=== PATIENT | male | born 1980 | race American Indian/Alaskan Native ===

== ENCOUNTER 2017-07-04 09:12 | Emergency (ER) | payer OTHER ==
[2017-07-04 09:18] VITALS: RESP 16; TEMP 98; O2SAT 100
[2017-07-04 09:19] VITALS: BMI 21.2
[2017-07-04] MEDS ORDERED: Sodium Chloride 0.9% 1,000 ML IV STA (10:07)
[2017-07-04 10:54] LABS: BASO # 0.1 K/uL (0.0-0.2); BASO % 0.6 % (0.0-2.0); EOS % 0.1 % (0.0-4.0); HEMATOCRIT 47.6 % (35.0-51.0); LYMPH % 12.2 % (20.0-40.0); MEAN CELL VOLUME 88.6 fl (80.0-94.0); MEAN CORPUSCULAR HEMOGLOBIN 29.2 pg (27.0-31.0); MEAN CORPUSCULAR HGB CONC 32.9 g/dL (33.0-37.0); MEAN PLATELET VOLUME 6.7 fl (7.2-11.7); MONO % 12.1 % (0.0-10.0); NEUT # 12.4 K/uL (1.8-7.0); RED CELL DISTRIBUTION WIDTH 14.3 % (11.5-14.5); WHITE BLOOD COUNT 16.5 K/uL (4.8-10.8)
[2017-07-04 11:08] LABS: ALKALINE PHOSPHATASE 123 U/L (38-126); ALT/SGPT 35 U/L (21-72); AST/SGOT 36 U/L (17-59); BILIRUBIN,TOTAL 1.1 mg/dl (0.2-1.3); BLOOD UREA NITROGEN 19 mg/dl (9-20); CALCIUM 9.6 mg/dL (8.4-10.2); CARBON DIOXIDE 28 mmol/L (22-30); CHLORIDE 101 mmol/L (98-107); GFR AFRICAN-AMERICAN > 60; GLUCOSE,RANDOM 96 mg/dL (75-110); POTASSIUM 4.4 MMOL/L (3.6-5.0); SODIUM 138 mmol/l (132-148); TOTAL PROTEIN 8.5 G/DL (6.3-8.2)
[2017-07-04 11:11] LABS: ALB/GLOB RATIO 1.2 (1.0-2.1)
[2017-07-04] MEDS ORDERED: cefTRIAXone IV 1 gm in Dextros 50 ML IVPB STA (11:15)
[2017-07-04] MEDS ORDERED: Azithromycin 500 MG in Sodium Chloride 0.9% 250 ML IV STA (11:15)
--- NOTE | 2017-07-04 11:17 | ED PDOC ---
HPI: General Adult Time Seen by Provider: 07/04/17 09:31 Chief Complaint (Nursing): Abdominal Pain Chief Complaint (Provider): URI symptoms History Per: Patient History/Exam Limitations: no limitations Onset/Duration Of Symptoms: Days (x1) Additional Complaint(s): Fitz Palencia is a 36 year old male with a chief complaint of productive cough with yellow sputum, fever, sore throat, and runny nose that he has been experiencing since yesterday. Patient reports associated mylagias and diarrhea. He states that yesterday he took Advil and Theraflu, and presents to the ED for an outpatient X-Ray. Past Medical History Reviewed: Historical Data, Nursing Documentation, Vital Signs Vital Signs: Last Vital Signs Temp 98.0 F 07/04/17 09:16 Pulse 112 H 07/04/17 09:16 Resp 16 07/04/17 09:16 BP 131/87 07/04/17 09:16 Pulse Ox 100 07/04/17 14:14 - Medical History PMH: Asthma - Family History Family History: States: Unknown Family Hx - Home Medications Home Medications: Ambulatory Orders Medication Instructions Recorded Alprazolam [Xanax] 2 mg PO PRN 05/01/16 Oxycodone HCl [Oxycodone HCl ER] 30 PO 05/01/16 Naproxen [Naprosyn] 500 mg PO BID PRN #15 tablet 07/04/17 - Allergies Allergies/Adverse Reactions: Allergies Allergy/AdvReac Type Severity Reaction Status Date / Time No Known Allergies Allergy Verified 07/04/17 09:27 Review of Systems Constitutional: Positive for: Fever, Other (myalgias) ENT: Positive for: Nose Discharge, Throat Pain Respiratory: Positive for: Cough (w/ yellow sputum) Genitourinary Male: Positive for: Dysuria Physical Exam - Reviewed Nursing Documentation Reviewed: Yes Vital Signs Reviewed: Yes - Physical Exam Appears: Positive for: Non-toxic, No Acute Distress Head Exam: Positive for: ATRAUMATIC, NORMOCEPHALIC Skin: Positive for: Normal Color, Warm Eye Exam: Positive for: Normal appearance, EOMI, PERRL ENT: Positive for: Nasal Congestion. Negative for: Pharyngeal Erythema Neck: Positive for: Normal, Supple Cardiovascular/Chest: Positive for: Regular Rate, Rhythm. Negative for: Murmur Respiratory: Positive for: Normal Breath Sounds. Negative for: Wheezing Gastrointestinal/Abdominal: Positive for: Normal Exam, Soft. Negative for: Tenderness Back: Positive for: Normal Inspection. Negative for: L CVA Tenderness, R CVA Tenderness Extremity: Positive for: Normal ROM. Negative for: Deformity, Swelling Neurologic/Psych: Positive for: Alert, Oriented. Negative for: Motor/Sensory Deficits - Laboratory Results Result Diagrams: 07/04/17 10:25 07/04/17 10:25 - ECG O2 Sat by Pulse Oximetry: 100 (RA) Pulse Ox Interpretation: Normal - Radiology X-Ray: Interpreted by Me (Right middle lobe infiltrate) Medical Decision Making Medical Decision Making: Impression: URI vs. Viral Syndrome Plan: * Chest X-Ray * EKG * VBG * Toradol 15 mg IB * NaCl 1000 mLs at 1000 mLs/hr * Rocephin 1 gm/100 mLs NS * Zithromax 500 mg/250 mLs NS * Blood Culture * Throat Culture * Reevaluation Accession No. : [id number] Patient Name / ID : LUDWIG QUINTANILLA / [id number] Exam Date : 07/04/2017 08:38:04 ( Approved ) Study Comment : Sex / Age : M / 36Y Creator : Dennis Brown MD Dictator : Dennis Brown MD [employer] Counter Clerk : Bi Consultant : Dennis Brown MD Approver2 : Report Date : 07/04/2017 13:14:44 My Comment : HISTORY: Chronic Cough COMPARISON: No prior. TECHNIQUE: Chest PA and lateral FINDINGS: LUNGS: No active pulmonary disease. PLEURA: No significant pleural effusion identified. No pneumothorax apparent. CARDIOVASCULAR: Normal. OSSEOUS STRUCTURES: No significant abnormalities. VISUALIZED UPPER ABDOMEN: Normal. OTHER FINDINGS: None. IMPRESSION: No acute cardiopulmonary disease appreciated. Scribe Attestation: Documented by Julita De Guzman, acting as a scribe for Desirae Jaeger MD. Provider Scribe Attestation: All medical record entries made by the Scribe were at my direction and personally dictated by me. I have reviewed the chart and agree that the record accurately reflects my personal performance of the history, physical exam, medical decision making, and the department course for this patient. I have also personally directed, reviewed, and agree with the discharge instructions and disposition. Disposition - Clinical Impression Clinical Impression: Viral syndrome - Patient ED Disposition Is Patient to be Admitted: No - Disposition Disposition: Routine/Home Disposition Time: 14:15 Condition: STABLE Additional Instructions: FOLLOW-UP WITH YOUR PMD WITHIN 2 DAYS FOR REEVALUATION. Prescriptions: Naproxen [Naprosyn] 500 mg PO BID PRN #15 tablet PRN Reason: Pain, Moderate (4-7) Instructions: Viral Syndrome (ED) Forms: [employer] (Macedonian)
[2017-07-04] MEDS ORDERED: Azithromycin 500 MG IV IVPB ONE (11:19)
[2017-07-04 11:35] LABS: VENOUS BLOOD GAS BASE EXCESS 2.6 mmol/L (0.0-2.0); VENOUS BLOOD GAS PCO2 41 mmHg (40-60); VENOUS BLOOD PH 7.43 (7.32-7.43)
[2017-07-04] MEDS ORDERED: cefTRIAXone IV 1 gm in Dextros 50 ML IVPB ONE (12:57)
[2017-07-04 14:48] VITALS: BP 112/64; PULSE 90
== END 2017-07-04 14:47 | disposition home or self-care (01) ==
LOC: H.ER 09:12
DX: B34.9 Viral infection, unspecified (principal); J45.909 Unspecified asthma, uncomplicated
CPT/HCPCS: 80053; 82803; 85025; 87040; 87070; 87430; 87804; 96361; 96365; 96367; 96375; 99284; J0456; J0696; J1885; J7040

== ENCOUNTER 2017-07-23 23:58 | Emergency (ER) | payer OTHER ==
[2017-07-23 23:59] VITALS: BMI 21.2
[2017-07-24 00:08] VITALS: BP 141/67; PULSE 85; RESP 16; TEMP 97.4; O2SAT 100
--- NOTE | 2017-07-24 00:45 | ED PDOC ---
HPI: Male Pain Time Seen by Provider: 07/24/17 00:20 Chief Complaint (Nursing): Male Genitourinary Chief Complaint (Provider): hematuria x 1 day History Per: Patient History/Exam Limitations: no limitations Onset/Duration Of Symptoms: Days (1) Current Symptoms Are (Timing): Still Present Severity: Mild Pain Scale Rating Of: 2 Quality Of Discomfort: Unable To Describe Associated Symptoms: denies: Fever, Chills, Nausea, Vomiting, Loss Of Appetite, Back Pain Additional Complaint(s): Patient is a 36 year old AA male with no PMHx who presents for heamturia x 1 day. Patient states that he noticed red colored urine on three episodes of voiding. He denies blood clots and describes urine as red. Patient denies associated back pain fever, chills, N/V, or abdominal pain. Past Medical History Reviewed: Historical Data, Nursing Documentation, Vital Signs Vital Signs: Last Vital Signs Temp 97.4 F L 07/24/17 00:06 Pulse 85 07/24/17 00:06 Resp 16 07/24/17 00:06 BP 141/67 07/24/17 00:06 Pulse Ox 100 07/24/17 00:06 - Medical History PMH: Asthma Other PMH: Anxiety - Surgical History Surgical History: No Surg Hx - Family History Family History: States: No Known Family Hx - Living Arrangements Living Arrangements: With Family - Social History Current smoker - smoking cessation education provided: Yes (3 cigarettes daily) Drugs: Denies - Home Medications Home Medications: Ambulatory Orders Medication Instructions Recorded Alprazolam [Xanax] 2 mg PO PRN 05/01/16 Oxycodone HCl [Oxycodone HCl ER] 30 PO 05/01/16 Naproxen [Naprosyn] 500 mg PO BID PRN #15 tablet 07/04/17 Sulfamethoxazole/Trimethoprim 1 tab PO BID #14 tab 07/24/17 [Bactrim DS 800 mg-160 mg] - Allergies Allergies/Adverse Reactions: Allergies Allergy/AdvReac Type Severity Reaction Status Date / Time No Known Allergies Allergy Verified 07/24/17 00:06 Review of Systems ROS Statement: Except As Marked, All Systems Reviewed And Found Negative Genitourinary Male: Positive for: Hematuria Physical Exam - Reviewed Nursing Documentation Reviewed: Yes Vital Signs Reviewed: Yes - Physical Exam Appears: Positive for: Non-toxic Head Exam: Positive for: ATRAUMATIC, NORMOCEPHALIC Skin: Positive for: Normal Color, Warm, Dry Eye Exam: Positive for: Normal appearance, EOMI, PERRL ENT: Positive for: Normal ENT Inspection Neck: Positive for: Normal, Painless ROM, Supple Cardiovascular/Chest: Positive for: Regular Rate, Rhythm. Negative for: Edema, JVD Respiratory: Positive for: Normal Breath Sounds. Negative for: Crackles, Rales , Wheezing Gastrointestinal/Abdominal: Positive for: Normal Exam, Bowel Sounds, Soft. Negative for: Tenderness Back: Positive for: Normal Inspection. Negative for: L CVA Tenderness, R CVA Tenderness Extremity: Positive for: Normal ROM. Negative for: Pedal Edema Neurologic/Psych: Positive for: Alert, Oriented. Negative for: Motor/Sensory Deficits - ECG O2 Sat by Pulse Oximetry: 100 Medical Decision Making Medical Decision Makin yo male with painless hematuria UA, CT Renal ordered Ct Renal NAD UA shows small amount of blood Patient stable for discharge home; will treat for mildy cystitis Dx Cystitis FU PCP 2 days, Disposition - Clinical Impression Clinical Impression: Hematuria - Disposition Disposition Time: 02:00 Condition: STABLE Prescriptions: Sulfamethoxazole/Trimethoprim [Bactrim DS 800 mg-160 mg] 1 tab PO BID #14 tab Instructions: Acute Hematuria (ED) Forms: [employer] (Thai)
--- NOTE | 2017-07-24 01:28 | CT ---
EXAM: CT Abdomen and Pelvis Without Intravenous Contrast CLINICAL HISTORY: 36 years old, male; Signs and symptoms; Other: Hematuria; Additional info: Renal colic TECHNIQUE: Axial computed tomography images of the abdomen and pelvis without intravenous contrast. All CT scans at this facility use one or more dose reduction techniques, viz.: automated exposure control; ma/kV adjustment per patient size (including targeted exams where dose is matched to indication; i.e. head); or iterative reconstruction technique. Coronal and sagittal reformatted images were created and reviewed. COMPARISON: No relevant prior studies available. FINDINGS: Limitations: Motion artifact - mild. Lower thorax: Minimal atelectasis/scarring. ABDOMEN: Liver: Unremarkable. Gallbladder and bile ducts: No calcified stones. No ductal dilation. Pancreas: Unremarkable. No ductal dilation. Spleen: No splenomegaly. Adrenals: No mass. Kidneys and ureters: No renal calculi. No hydronephrosis. Stomach and bowel: No definite mural thickening. No obstruction. Appendix: Normal caliber. No definite inflammation. Appendicolith. PELVIS: Bladder: Unremarkable. No stones. Reproductive: Unremarkable as visualized. ABDOMEN and PELVIS: Intraperitoneal space: No significant fluid collection. No free air. Bones/joints: No acute fracture. Soft tissues: Unremarkable. Vasculature: Unremarkable. No aneurysm. Lymph nodes: No pathologically enlarged lymph nodes. IMPRESSION: 1. No definite CT evidence of urolithiasis. 2. Incidental/non-acute findings are described above.
[2017-07-24 04:10] LABS: RBC URINE 4 /hpf (0-3); URINE BILIRUBIN NEGATIVE (NEGATIVE); URINE BLOOD NEGATIVE (NEGATIVE); URINE COLOR YELLOW (YELLOW); URINE GLUCOSE (UA) NEG (Normal); URINE KETONE NEGATIVE (NEGATIVE); URINE LEUKOCYTE ESTERASE NEG Leu/uL (Negative); URINE PROTEIN NEGATIVE (NEGATIVE); URINE UROBILINOGEN 0.2-1.0 mg/dL (0.2-1.0); WBC URINE 1 /hpf (0-5)
== END 2017-07-24 04:48 | disposition home or self-care (01) ==
LOC: H.ER 23:58
DX: N30.90 Cystitis, unspecified without hematuria (principal); F41.9 Anxiety disorder, unspecified; J45.909 Unspecified asthma, uncomplicated; F17.210 Nicotine dependence, cigarettes, uncomplicated

== ENCOUNTER 2017-09-01 14:53 | Emergency (ER) | payer OTHER ==
[2017-09-01 14:53] VITALS: BMI 21.2
[2017-09-01 15:03] VITALS: BP 124/88; PULSE 103; RESP 18; TEMP 98.3; O2SAT 99
--- NOTE | 2017-09-01 15:19 | ED PDOC ---
HPI: Male Pain Chief Complaint (Provider): genital rash History Per: Patient Additional Complaint(s): 36-year-old male presents to emergency department for evaluation of rash to genital area. Patient is requesting a male provider. <Latha Thorntonissa - Last Filed: 09/01/17 15:59> <Chirag Paz - Last Filed: 09/01/17 16:07> Time Seen by Provider: 09/01/17 15:06 Chief Complaint (Nursing): Male Genitourinary Past Medical History Reviewed: Historical Data, Nursing Documentation, Vital Signs Vital Signs: Last Vital Signs Temp 98.3 F 09/01/17 15:01 Pulse 103 H 09/01/17 15:01 Resp 18 09/01/17 15:01 BP 124/88 09/01/17 15:01 Pulse Ox 99 09/01/17 15:01 - Medical History PMH: Back Problems - Surgical History Surgical History: No Surg Hx - Family History Family History: States: No Known Family Hx - Social History Current smoker - smoking cessation education provided: No Alcohol: None Drugs: Denies <Natalia Thornton - Last Filed: 09/01/17 15:59> Vital Signs: Last Vital Signs Temp 98.3 F 09/01/17 15:01 Pulse 103 H 09/01/17 15:01 Resp 18 09/01/17 15:01 BP 124/88 09/01/17 15:01 Pulse Ox 99 09/01/17 16:02 <Chirag Paz - Last Filed: 09/01/17 16:07> - Home Medications Home Medications: Ambulatory Orders Medication Instructions Recorded Alprazolam [Xanax] 2 mg PO PRN 05/01/16 Oxycodone HCl [Oxycodone HCl ER] 30 PO 05/01/16 Naproxen [Naprosyn] 500 mg PO BID PRN #15 tablet 07/04/17 Sulfamethoxazole/Trimethoprim 1 tab PO BID #14 tab 07/24/17 [Bactrim DS 800 mg-160 mg] Clotrimazole/Betamethasone 15 gm EXT BID #1 tube 09/01/17 [Lotrisone] - Allergies Allergies/Adverse Reactions: Allergies Allergy/AdvReac Type Severity Reaction Status Date / Time No Known Allergies Allergy Verified 07/24/17 00:06 Review of Systems ROS Statement: Except As Marked, All Systems Reviewed And Found Negative Constitutional: Negative for: Fever Gastrointestinal: Negative for: Abdominal Pain Genitourinary Male: Positive for: Rash. Negative for: Dysuria, Frequency, Incontinence, Hematuria, Penile Discharge, Scrotal Pain, Penile Pain <Natalia Thornton - Last Filed: 09/01/17 15:59> Physical Exam - Reviewed Nursing Documentation Reviewed: Yes Vital Signs Reviewed: Yes - Physical Exam Appears: Positive for: Well, Non-toxic, No Acute Distress Skin: Negative for: Rash Eye Exam: Positive for: Normal appearance Neurologic/Psych: Positive for: Alert, Oriented <NorbertoNatalia - Last Filed: 09/01/17 15:59> - Physical Exam Male Genital Exam: Positive for: other (Excoriations to distal shaft bilat. No discharge. No ulcers. Hair follicles inflamed proximally. No testicular masses or tendernes. No lymphadenopathy.) <Chirag Paz - Last Filed: 09/01/17 16:07> - ECG O2 Sat by Pulse Oximetry: 99 Pulse Ox Interpretation: Normal <NorbertoNatalia - Last Filed: 09/01/17 15:59> Medical Decision Making Medical Decision Makin36 year old male with genital rash. Patient was examined by Dr. Paz. As per Dr. Paz, rash is consistent with folliculitis and skin abrasions. He recommends prescription for Lotrisone and provided patient with wound care instructions. Urine test for gonorrhea and chlamydia was sent. Patient was referred to clinic for follow-up. <NorbertoNatalia - Last Filed: 09/01/17 15:59> Disposition - Patient ED Disposition Is Patient to be Admitted: No Counseled Patient/Family Regarding: Studies Performed, Diagnosis, Need For Followup, Rx Given - Disposition Disposition: Routine/Home Disposition Time: 15:18 <Natalia Thornton - Last Filed: 09/01/17 15:59> <Chirag Paz - Last Filed: 09/01/17 16:07> - Clinical Impression Clinical Impression: Folliculitis, Abrasion - Disposition Referrals: [facility] [Outside] Condition: STABLE Additional Instructions: Apply cream as directed. Follow-up with primary doctor or with clinic. Prescriptions: Clotrimazole/Betamethasone [Lotrisone] 15 gm EXT BID #1 tube Instructions: Folliculitis (ED), Abrasion (ED) Forms: [employer] (Gibraltarian)
== END 2017-09-01 15:59 | disposition home or self-care (01) ==
LOC: H.ER 14:53
DX: L73.9 Follicular disorder, unspecified (principal); T14.8XXA Other injury of unspecified body region, initial encounter

== ENCOUNTER 2017-09-06 10:48 | Emergency (ER) | payer OTHER ==
[2017-09-06 10:48] VITALS: BMI 21.2
[2017-09-06 11:13] VITALS: BP 128/89; PULSE 77; RESP 18; TEMP 97.7; O2SAT 99
[2017-09-06] MEDS ORDERED: Lidocaine 2% Jelly (Uro-Jet) ONE (11:14)
--- NOTE | 2017-09-06 11:26 | ED PDOC ---
Upper Extremity Pain/Injury Time Seen by Provider: 09/06/17 11:03 Chief Complaint (Nursing): Finger,Hand,&Wrist Chief Complaint (Provider): Finger pain History Per: Patient History/Exam Limitations: no limitations Onset/Duration Of Symptoms: Days (2) Additional Complaint(s): Pt reports pain and swelling to R 4th finger X 2 days, no discharge, no trauma, no redness, no fever. Had similar sxs on other digit. Past Medical History Reviewed: Nursing Documentation, Vital Signs Vital Signs: Last Vital Signs Temp 97.7 F 09/06/17 11:09 Pulse 77 09/06/17 11:09 Resp 18 09/06/17 11:09 BP 128/89 09/06/17 11:09 Pulse Ox 99 09/06/17 11:09 - Medical History PMH: Asthma, Back Problems - Family History Family History: States: Unknown Family Hx - Social History Current smoker - smoking cessation education provided: No - Home Medications Home Medications: Ambulatory Orders Medication Instructions Recorded Alprazolam [Xanax] 2 mg PO PRN 05/01/16 Oxycodone HCl [Oxycodone HCl ER] 30 PO 05/01/16 Naproxen [Naprosyn] 500 mg PO BID PRN #15 tablet 07/04/17 Sulfamethoxazole/Trimethoprim 1 tab PO BID #14 tab 07/24/17 [Bactrim DS 800 mg-160 mg] Clotrimazole/Betamethasone 15 gm EXT BID #1 tube 09/01/17 [Lotrisone] Acetaminophen with Codeine 1 tab PO Q6H PRN #10 tab 09/06/17 [Tylenol with Codeine No. 3 300 mg-30 mg] Naproxen [Naprosyn] 500 mg PO BID PRN #15 tablet 09/06/17 Sulfamethoxazole/Trimethoprim 1 tab PO BID #14 tab 09/06/17 [Bactrim DS 800 mg-160 mg] - Allergies Allergies/Adverse Reactions: Allergies Allergy/AdvReac Type Severity Reaction Status Date / Time No Known Allergies Allergy Verified 07/24/17 00:06 Review of Systems Constitutional: Negative for: Fever, Chills Skin: Negative for: Rash, Lesions Neurological: Negative for: Weakness, Numbness Physical Exam - Reviewed Nursing Documentation Reviewed: Yes Vital Signs Reviewed: Yes - Physical Exam Appears: Positive for: Well, No Acute Distress Skin: Positive for: Normal Color, Warm, Dry Extremity: Positive for: Other (R 4TH DIGIT: + Fluctuance distal posterior finger, nailbed intact, no erythema, no discharge, TTP, no vesicles) Neurologic/Psych: Positive for: Alert, Oriented - ECG O2 Sat by Pulse Oximetry: 99 Medical Decision Making Medical Decision Makin yo male with paronychia. - I&D Procedures - Incision and Drainage Site: L 4th digit Blade Size: 11 I & D Procedure: betadine prep, sterile dressing applied Progress: Viscous lidocaine applied, small incision made lateral to nailbed, scant discharge. Disposition - Clinical Impression Clinical Impression: Paronychia - Disposition Referrals: [facility] [Outside] Disposition: Routine/Home Disposition Time: 11:30 Condition: STABLE Prescriptions: Acetaminophen with Codeine [Tylenol with Codeine No. 3 300 mg-30 mg] 1 tab PO Q6H PRN #10 tab PRN Reason: Pain, Severe (8-10) Naproxen [Naprosyn] 500 mg PO BID PRN #15 tablet PRN Reason: Pain, Moderate (4-7) Sulfamethoxazole/Trimethoprim [Bactrim DS 800 mg-160 mg] 1 tab PO BID #14 tab Instructions: Paronychia (ED) Forms: [employer] (Gabonese)
== END 2017-09-06 11:42 | disposition home or self-care (01) ==
LOC: H.ER 10:48
DX: L03.019 Cellulitis of unspecified finger (principal)

== ENCOUNTER 2018-02-18 20:10 | Emergency (ER) | payer OTHER ==
[2018-02-18 20:10] VITALS: BMI 21.2
[2018-02-18 20:21] VITALS: BP 119/78; PULSE 88; RESP 18; TEMP 98.2; O2SAT 98
--- NOTE | 2018-02-18 22:12 | ED PDOC ---
HPI: General Adult Time Seen by Provider: 02/18/18 22:11 Chief Complaint (Nursing): Medical Clearance Chief Complaint (Provider): needs x-rays History Per: Patient Additional Complaint(s): 37 y/o male presents to ED requesting x-rays. 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 He is requesting x-ray for lumbar spine, right knee and left ankle. He denies recent fall or trauma. PMD: none Past Medical History Reviewed: Historical Data, Nursing Documentation, Vital Signs Vital Signs: Last Vital Signs Temp 98.2 F 02/18/18 20:17 Pulse 88 02/18/18 20:17 Resp 18 02/18/18 20:17 BP 119/78 02/18/18 20:17 Pulse Ox 98 02/18/18 23:15 - Medical History PMH: Asthma, Back Problems - Surgical History Other surgeries: Left ankle fracture repair - Family History Family History: States: No Known Family Hx - Living Arrangements Living Arrangements: With Family - Social History Current smoker - smoking cessation education provided: Yes Alcohol: None Drugs: Denies - Home Medications Home Medications: Ambulatory Orders Medication Instructions Recorded Alprazolam [Xanax] 2 mg PO PRN 05/01/16 Oxycodone HCl [Oxycodone HCl ER] 30 PO 05/01/16 Naproxen [Naprosyn] 500 mg PO BID PRN #15 tablet 07/04/17 Sulfamethoxazole/Trimethoprim 1 tab PO BID #14 tab 07/24/17 [Bactrim DS 800 mg-160 mg] Clotrimazole/Betamethasone 15 gm EXT BID #1 tube 09/01/17 [Lotrisone] Acetaminophen with Codeine 1 tab PO Q6H PRN #10 tab 09/06/17 [Tylenol with Codeine No. 3 300 mg-30 mg] Naproxen [Naprosyn] 500 mg PO BID PRN #15 tablet 09/06/17 Sulfamethoxazole/Trimethoprim 1 tab PO BID #14 tab 09/06/17 [Bactrim DS 800 mg-160 mg] - Allergies Allergies/Adverse Reactions: Allergies Allergy/AdvReac Type Severity Reaction Status Date / Time No Known Allergies Allergy Verified 07/24/17 00:06 Review of Systems ROS Statement: Except As Marked, All Systems Reviewed And Found Negative Constitutional: Negative for: Fever Musculoskeletal: Positive for: Back Pain, Leg Pain (right knee pain, left ankle pain) Physical Exam - Reviewed Nursing Documentation Reviewed: Yes Vital Signs Reviewed: Yes - Physical Exam Appears: Positive for: Well, Non-toxic, No Acute Distress Skin: Positive for: Normal Color. Negative for: Rash Eye Exam: Positive for: Normal appearance Neck: Positive for: Normal Cardiovascular/Chest: Positive for: Regular Rate, Rhythm Respiratory: Positive for: Normal Breath Sounds Back: Negative for: L CVA Tenderness, R CVA Tenderness, Vertebral Tenderness Extremity: Positive for: Normal ROM Neurologic/Psych: Positive for: Alert, Oriented, Gait (steady) - ECG O2 Sat by Pulse Oximetry: 98 Pulse Ox Interpretation: Normal - Other Rad LS Spine x-ray X-Ray: Interpreted by Me, Viewed By Me X-Ray Interpretation: no fx, no dis Right knee x-ray X-Ray: Interpreted by Me, Viewed By Me X-Ray Interpretation: no fx, no dis Left ankle x-ray X-Ray: Interpreted by Me, Viewed By Me X-Ray Interpretation: hardware grossly aligned, no fx, no dis Medical Decision Making Medical Decision Makin-year-old male presents to ED for x-rays. Plan: X-ray lumbar spine X-ray right knee X-ray left ankle Patient left ED after x-rays were taken, before law writer was able to discuss results of x-rays with patient. Mother aware of x-ray results. All questions answered. Disposition - Clinical Impression Clinical Impression: Back pain, Knee pain, Ankle pain - Patient ED Disposition Is Patient to be Admitted: No - Disposition Disposition: Left W/O Treatment (Patient left after x-rays were completed, before results were discussed with patient) Disposition Time: 23:14 Condition: UNKNOWN Instructions: General (DC) Forms: [employer] (North Korean)
--- NOTE | 2018-02-19 08:57 | RAD ---
PROCEDURE: Left Ankle Radiographs. HISTORY: pain COMPARISON: None FINDINGS: BONES: Prior open reduction internal fixation orthopedic hardware identified in position once again at the distal fibula and tibia transfixing bimalleolar fractures which appear healed at this time. No acute fracture or destructive bony lesion appreciable. JOINTS: Normal. No osteoarthritis. Ankle mortise maintained. Talar dome intact SOFT TISSUES: Normal. OTHER FINDINGS: None. IMPRESSION: No acute fracture or dislocation identified. Prior ORIF involving medial and lateral malleoli reiterated with orthopedic hardware unchanged.
--- NOTE | 2018-02-19 09:02 | RAD ---
PROCEDURE: Right Knee Radiographs. HISTORY: pain COMPARISON: Right knee radiographs 05/04/2016. FINDINGS: BONES: No acute fracture or destructive bony lesion identified. JOINTS: No significant joint space narrowing or cortical sclerosis. No osteophyte development. No osteoarthritis. JOINT EFFUSION: None. OTHER FINDINGS: None. IMPRESSION: No acute significant interval change in right knee radiographs. No acute fracture or dislocation identified.
--- NOTE | 2018-02-19 09:04 | RAD ---
PROCEDURE: Radiographs of the Lumbar Spine. HISTORY: pain COMPARISON: No prior. FINDINGS: BONES: Straightened curvature. No spondylolisthesis. No destructive bony lesion or fracture identified. DISC SPACES: Unremarkable. OTHER FINDINGS: Distally loss L5-S1 indicates degenerative disc disease. No endplate sclerosis or osteophyte development however. IMPRESSION: Pypu-vs-[id number] degenerative disease L5-S1. No fracture or spondylolisthesis identified. No destructive bony lesion identified.
== END 2018-02-18 23:17 | disposition left against medical advice (07) ==
LOC: H.ER 20:10
DX: M54.5 Low back pain (principal); M25.561 Pain in right knee; M25.572 Pain in left ankle and joints of left foot

== ENCOUNTER 2018-09-12 09:15 | Emergency (ER) | payer MEDICAID, OTHER ==
[2018-09-12 09:15] VITALS: BMI 21.2
[2018-09-12 09:19] VITALS: O2SAT 100
[2018-09-12] MEDS ORDERED: Naproxen 500 MG TAB PO STA (09:44)
[2018-09-12] MEDS ORDERED: Naproxen 500 MG TAB PO ONE (09:48)
--- NOTE | 2018-09-12 10:09 | ED PDOC ---
HPI: General Adult Time Seen by Provider: 09/12/18 09:31 Chief Complaint (Nursing): Abnormal Skin Integrity Chief Complaint (Provider): Jaw pain History Per: Patient History/Exam Limitations: no limitations Onset/Duration Of Symptoms: Days (3) Current Symptoms Are (Timing): Still Present Additional Complaint(s): 37 year old male presents to the ED for an evaluation of left lower jaw pain and swelling. He reports of jaw pain onset for 3 days and the swelling occurred last night. Currently, the tooth pain is radiating to his throat and facial area. He took Tylenol and Motrin. Otherwise, he denies any injury, cough, shortness of breath, ear pain or neck pain. PMD: No family provider Past Medical History Reviewed: Historical Data, Nursing Documentation, Vital Signs Vital Signs: Last Vital Signs Temp 97.6 F 09/12/18 09:18 Pulse 85 09/12/18 09:18 Resp 17 09/12/18 09:18 BP 120/74 09/12/18 09:18 Pulse Ox 100 09/12/18 09:18 - Medical History PMH: Asthma, Back Problems - Family History Family History: States: Unknown Family Hx - Social History Current smoker - smoking cessation education provided: Yes Alcohol: Social Drugs: Cannabis - Immunization History Hx Tetanus Toxoid Vaccination: No Hx Influenza Vaccination: No Hx Pneumococcal Vaccination: No - Home Medications Home Medications: Ambulatory Orders Medication Instructions Recorded Alprazolam [Xanax] 2 mg PO PRN 05/01/16 Oxycodone HCl [Oxycodone HCl ER] 30 PO 05/01/16 Naproxen [Naprosyn] 500 mg PO BID PRN #15 tablet 07/04/17 Sulfamethoxazole/Trimethoprim 1 tab PO BID #14 tab 07/24/17 [Bactrim DS 800 mg-160 mg] Clotrimazole/Betamethasone 15 gm EXT BID #1 tube 09/01/17 [Lotrisone] Acetaminophen with Codeine 1 tab PO Q6H PRN #10 tab 09/06/17 [Tylenol with Codeine No. 3 300 mg-30 mg] Naproxen [Naprosyn] 500 mg PO BID PRN #15 tablet 09/06/17 Sulfamethoxazole/Trimethoprim 1 tab PO BID #14 tab 09/06/17 [Bactrim DS 800 mg-160 mg] Naproxen [Naprosyn] 500 mg PO BID PRN #15 tablet 09/12/18 Penicillin VK [Penicillin VK Tab] 500 mg PO QID #28 tab 09/12/18 - Allergies Allergies/Adverse Reactions: Allergies Allergy/AdvReac Type Severity Reaction Status Date / Time No Known Allergies Allergy Verified 07/24/17 00:06 Review of Systems ROS Statement: Except As Marked, All Systems Reviewed And Found Negative Constitutional: Negative for: Fever, Chills ENT: Positive for: Mouth Pain, Throat Pain. Negative for: Ear Pain, Nose Congestion Respiratory: Negative for: Cough, Shortness of Breath Musculoskeletal: Negative for: Neck Pain Neurological: Negative for: Headache Physical Exam - Reviewed Nursing Documentation Reviewed: Yes Vital Signs Reviewed: Yes - Physical Exam Appears: Positive for: Well, Non-toxic, No Acute Distress Head Exam: Positive for: ATRAUMATIC, NORMAL INSPECTION, NORMOCEPHALIC Skin: Positive for: Normal Color, Warm, Dry. Negative for: Rash Eye Exam: Positive for: EOMI, Normal appearance, PERRL ENT: Positive for: Normal ENT Inspection (uvula midline, no abscess, no fluctuance, no bleeding, no difficulty speaking or opening mouth), Other (uvula midline) Neurologic/Psych: Positive for: Alert, Oriented (x3). Negative for: Motor/Sensory Deficits - ECG O2 Sat by Pulse Oximetry: 100 (RA) Pulse Ox Interpretation: Normal Medical Decision Making Medical Decision Making: Time: 943 Initial Plan: Naproxen 500mg Penicillin VK 500mg Reevaluation Scribe Attestation: Documented by Jenni Cochran, acting as a scribe for Desirae Jaeger MD. Provider Scribe Attestation: All medical record entries made by the Scribe were at my direction and personally dictated by me. I have reviewed the chart and agree that the record accurately reflects my personal performance of the history, physical exam, medical decision making, and the department course for this patient. I have also personally directed, reviewed, and agree with the discharge instructions and disposition. Disposition - Clinical Impression Clinical Impression: Toothache - Disposition Disposition: Routine/Home Disposition Time: 10:29 Condition: STABLE Additional Instructions: FOLLOW-UP WITH [facility] WITHIN 2 DAYS FOR REEVALUATION. Prescriptions: Naproxen [Naprosyn] 500 mg PO BID PRN #15 tablet PRN Reason: Pain, Moderate (4-7) Penicillin VK [Penicillin VK Tab] 500 mg PO QID #28 tab Instructions: Dental Pain Forms: [facility] (Maltese)
[2018-09-12 11:07] VITALS: BP 128/72; PULSE 82; RESP 18; TEMP 97.8
== END 2018-09-12 11:00 | disposition home or self-care (01) ==
LOC: H.ER 09:15
DX: K08.89 Other specified disorders of teeth and supporting structures (principal); F17.200 Nicotine dependence, unspecified, uncomplicated; J45.909 Unspecified asthma, uncomplicated